=== PATIENT | female | born 1980 | race Caucasian/White ===

== ENCOUNTER 2022-01-28 12:46 | Outpatient (CLI) | payer OTHER | END 2022-01-28 13:20 | disposition home or self-care (01) | LOC: NST 12:46 | PROVIDERS: ATTEND Obstetrics & Gynecology Maternal & Fetal Medicine | DX: Z34.83 Encounter for supervision of other normal pregnancy, third trimester (principal) ==

== ENCOUNTER 2022-02-17 07:29 | Outpatient (CLI) | payer OTHER | END 2022-02-17 07:50 | disposition home or self-care (01) | LOC: NST 07:29 | PROVIDERS: ATTEND Obstetrics & Gynecology Maternal & Fetal Medicine | DX: Z23 Encounter for immunization (principal) ==

== ENCOUNTER 2022-02-23 14:03 | Outpatient (CLI) | payer OTHER | END 2022-02-23 15:43 | disposition home or self-care (01) | LOC: NST 14:03 | PROVIDERS: ATTEND Obstetrics & Gynecology | DX: Z34.83 Encounter for supervision of other normal pregnancy, third trimester (principal) ==

== ENCOUNTER 2022-03-14 09:14 | Outpatient (CLI) | payer OTHER | END 2022-03-14 10:04 | disposition home or self-care (01) | LOC: NST 09:14 | PROVIDERS: ATTEND Obstetrics & Gynecology Maternal & Fetal Medicine | DX: Z34.83 Encounter for supervision of other normal pregnancy, third trimester (principal) ==

== ENCOUNTER 2022-03-23 06:41 | Inpatient (IN) | payer OTHER ==
[~2022-03-23] VITALS: Ht 157.5 cm; Wt 3.2 kg
[~2022-03-23 06:41] MED LIST: IRON PO; PRENATAL PO
[2022-03-23] MEDS ORDERED: IRON236 MG PO (09:32)
[2022-03-23] MEDS ORDERED: PRENATAL + DHA1 EAC1 PO (09:32)
== END 2022-03-25 12:45 | disposition home or self-care (01) | DRG 785 ==
LOC: LDR 06:41 → O/R 09:53 → SURG 11:35 → OB/GYN 12:55 → SURG 03-30 11:57
PROVIDERS: ADMIT Obstetrics & Gynecology Maternal & Fetal Medicine; ATTEND Obstetrics & Gynecology Maternal & Fetal Medicine
PROC: 0UB70ZZ Excision of Bilateral Fallopian Tubes, Open Approach (ICD-10-PCS; 2022-03-23)
PROC: 4A1HXCZ Monitoring of Products of Conception, Cardiac Rate, External Approach (ICD-10-PCS; 2022-03-23)
PROC: 10D00Z1 Extraction of Products of Conception, Low, Open Approach (ICD-10-PCS; principal; 2022-03-23 09:30)
DX: O34.211 Maternal care for low transverse scar from previous cesarean delivery (principal); O32.1XX0 Maternal care for breech presentation, not applicable or unspecified; Z3A.38 38 weeks gestation of pregnancy; Z37.0 Single live birth; Z20.822 Contact with and (suspected) exposure to COVID-19; Z30.2 Encounter for sterilization